=== PATIENT | male | born 1990 | race Caucasian/White ===

== ENCOUNTER 2023-05-03 13:23 | Emergency (ER) | payer BC, SELFPAY ==
[2023-05-03 13:48] VITALS: BP 126/75; PULSE 95; RESP 20; TEMP 37.2; O2SAT 97; BMI 35.9
[2023-05-03 16:07] VITALS: BP 140/98; PULSE 78; RESP 16; TEMP 36.7; O2SAT 98
[2023-05-03] MEDS: 0.9 % SODIUM CHLORIDE 1000 ml 1,000 ML IV ×2 (16:07→17:42)
--- NOTE | 2023-05-03 16:07 | CRLHL7_ITS ---
For Patients: As a result of the Century Cures Act, medical imaging exams and procedure reports are released immediately into your electronic medical record. You may view this report before your referring provider. If you have questions, please contact your health care provider. Indication: Wheezing Technique: Chest 2 views Comparison: None Findings/Impression: Cardiovascular and mediastinum: Heart size and vasculature are normal in caliber and appearance. Mediastinum is within normal limits. Lungs and pleural spaces: No pleural effusion or pneumothorax. Focal airspace consolidation within the left lower lobe suggestive of pneumonia. Bones and soft tissues: No significant findings. Dictated by Tod Garcia MD @ 05/03/2023 5:16:07 PM (Electronically Signed)
--- NOTE | 2023-05-03 16:08 | ED.GENADULT ---
HPI - General Adult General Date Seen: 05/03/23 Chief complaint: Weakness Stated complaint: Possible heat exhaustion--chills, headache Time Seen by Provider: 05/03/23 15:31 Source: patient and family Mode of arrival: ambulatory Limitations: no limitations History of Present Illness HPI narrative: Patient is a 32-year-old male who comes in with intermittent sweats and chills without fever over the past three or four days. 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 He has been doing this job for a couple of years. Over the past two days he has had some nausea but no vomiting. He has alternating sweats and chills. He has been drinking okay but is not able to eat. He has been physically weak and achy. He has also had headaches. No localizing neurologic complaints. He has taken some ibuprofen but no other medication. He feels that his urine has been dark and that he is urinating less than normal. Related Data Previous Rx's Medication Instructions Recorded azithromycin 250 mg tablet See Rx Instructions PO .COMPLEX #6 05/03/23 (Zithromax Z-Jayce) tabs Allergies Allergy/AdvReac Type Severity Reaction Status Date / Time No Known Drug Allergies Allergy Verified 05/03/23 14:05 Review of Systems Narrative: Review of systems is outlined above otherwise noted to be negative. PFSH PFS Social History Smoking Status: Never smoker How often do you have a drink containing alcohol: never AUDIT-C Alcohol total score: 0 Non-prescribed substance use: denies use Exam Narrative: Exam Narrative: Vitals noted. He is wake alert and fully oriented. His is lying in bed with him. He is in no acute distress. HEENT: Normocephalic, atraumatic. Conjunctiva clear. Extraocular movements are intact. Tympanic membranes are pearly white bilaterally. Posterior pharynx is clear without erythema or exudate. His mouth feels dry to him. Neck is supple without adenopathy, thyromegaly, carotid bruit. Full range of motion of the cervical spine. Lungs: Clear to auscultation in all yao. No wheezes, rales, rhonchi. There is some localized rhonchi in the right lower lobe. Some expiratory wheezes. Heart: Regular rate and rhythm without murmur. He is not tachycardic. Abdomen: Soft and nontender. No guarding, rigidity, rebound. Bowel sounds are normal. No palpable masses. Extremities: No cyanosis or edema. Good distal pulses. Skin: No abnormalities noted of the exposed skin. Neurologic: Awake, alert, fully oriented. Neurologic exam is nonfocal. Const: Vital Signs, click to edit/add: Vital Signs - 24 hr 05/03/23 13:48 05/03/23 16:07 Temperature 98.9 F 98.1 F Pulse Rate [Right Pulse Oximeter] 95 78 Respiratory Rate 20 16 Blood Pressure [Ri ght Upper Arm] 126/75 140/98 H Pulse Oximetry 97 98 Oxygen Delivery Me thod Room Air Room Air Course Course Hospital Course: Patient seen and examined. IV is established he is given 2 L of normal saline. Labs and chest x-ray are ordered. Vital Signs Vital signs: Initial Vital Signs Temperature 98.9 F 05/03/23 13:48 Temperature Source Temporal Artery Scan 05/03/23 13:48 Pulse Rate 95 05/03/23 13:48 Pulse Rhythm Regular 05/03/23 13:48 Pulse Strength 3+ Normal 05/03/23 13:48 Respiratory Rate 20 05/03/23 13:48 Blood Pressure 126/75 05/03/23 13:48 Blood Pressure Mean 92 05/03/23 13:48 Blood Pressure Position Sitting 05/03/23 13:48 Pulse Oximetry 97 05/03/23 13:48 Oxygen Delivery Method Room Air 05/03/23 13:48 Vital Signs Temperature 98.9 F 05/03/23 13:48 Pulse Rate 95 05/03/23 13:48 Respiratory Rate 20 05/03/23 13:48 Blood Pressure 126/75 05/03/23 13:48 Pulse Oximetry 97 05/03/23 13:48 Oxygen Delivery Method Room Air 05/03/23 13:48 Temperature 98.1 F 05/03/23 16:07 Pulse Rate 78 05/03/23 16:07 Respiratory Rate 16 05/03/23 16:07 Blood Pressure 140/98 H 05/03/23 16:07 Pulse Oximetry 98 05/03/23 16:07 Oxygen Delivery Method Room Air 05/03/23 16:07 Medical Decision Making Lab Data Labs: Lab Results 05/03/23 05/03/23 Range/Units 15:48 15:50 WBC 5.88 (4.50-11.00) K/uL RBC 4.61 (4.30-5.90) m/uL Hgb 14.0 (13.5-17.5) gm/dL Hct 41.8 (37.0-53.0) % MCV 91 (80-100) fL MCH 30 (26-34) pg MCHC 34 (32-36) gm/dL RDW Coeff of Kasandra 12.2 (11.5-15.5) % Plt Count 173 (140-440) K/uL Neut % (Auto) 77.7 H (42.0-72.0) % Lymph % (Auto) 12.8 L (20-44) % [place] % (Auto) 8.7 (0.0-11.0) % Eos % (Auto) 0.0 (0.0-7.0) % Baso % (Auto) 0.3 (0.0-3.0) % Neut # (Auto) 4.60 (1.7-7.0) K/uL Lymph # (Auto) 0.80 L (0.90-2.90) K/uL [place] # (Auto) 0.50 (0.00-0.90) K/UL Eos # (Auto) 0.00 (0.00-0.50) K/uL Baso # (Auto) 0.02 (0.00-0.30) K/uL Sodium 137 (135-149) mmol/L Potassium 4.3 (3.6-5.1) mmol/L Chloride 100 (96-114) mmol/L Carbon Dioxide 28 (20-32) mmol/L BUN 16 (5-24) mg/dL Creatinine 0.9 (0.5-1.5) mg/dL Estimated Creat Clear 123.92 Estimated GFR 118 ml/min Glucose 102 (60-115) mg/dL Calcium 9.8 (8.4-10.6) mg/dL Total Bilirubin 0.8 (0.1-1.5) mg/dL Direct Bilirubin 0.2 (0.0-0.5) mg/dL AST 35 (12-35) U/L ALT 34 (4-50) U/L Alkaline Phosphatase 59 (40-150) U/L Total Creatine Kinase 170 (54-186) U/L Total Protein 8.5 H (6.0-8.3) g/dL Albumin 4.7 (3.3-5.0) g/dL Urine Color Yellow (Yellow) Urine Appearance Clear (Clear) Urine pH 6.5 (5.0-8.5) Ur Specific [place] 1.025 (1.000-1.030) Urine Protein 1+ A (Negative) Urine Glucose (UA) Negative (Negative) Urine Ketones Trace A (Negative) Urine Blood Negative (Negative) Urine Nitrite Negative (Negative) Urine Bilirubin Negative (Negative) Urine Urobilinogen 1.0 (0.2-1.0) Ur Leukocyte Esterase Negative (Negative) Urine RBC 0-2 (0-2) Urine WBC 0-2 (0-5) Ur Squamous Epith Cells None (None-Few) Urine Bacteria None (None) Discharge Plan Discharge Clinical Impression: Heat exhaustion Left lower lobe pneumonia Qualifiers: Pneumonia type: due to unspecified organism Qualified Code(s): J18.9 - Pneumonia, unspecified organism Patient Disposition: Home, Self-Care Condition: Improved Additional Instructions: Your labs are all reassuring. Your chest x-ray shows a left lower lobe pneumonia. Zithromax x5 days. Rest, stay out of the heat until feeling better, Tylenol or ibuprofen for headache. Follow-up with your PCP to discuss a sleep apnea test. Follow-up with your PCP if symptoms are not significantly improved over the next three days. Prescriptions: New azithromycin [Zithromax Z-Jayce] 250 mg tablet See Rx Instructions .ROUTE .COMPLEX Qty: 6 0RF Rx Instructions: For 250 mg dose pack: take 500 mg today (day 1), then 250 mg for 4 days (days 2-5) Stand Alone Forms: [employer] Info Instructions
[2023-05-03 16:09] LABS: Appearance Urine Clear (Clear); Bilirubin Urine Negative (Negative); Blood Urine Negative (Negative); Color Urine Yellow (Yellow); Glucose Urine Negative (Negative); Ketones Urine Trace (Negative); Leukocyte Esterase Urine Negative (Negative); Nitrite Urine Negative (Negative); Protein Urine 1+ (Negative); Specific Gravity Urine 1.025 (1.000-1.030); pH Urine 6.5 (5.0-8.5)
[2023-05-03 16:20] LABS: Albumin* 4.7 g/dL (3.3-5.0); Chloride* 100 mmol/L (96-114); Potassium* 4.3 mmol/L (3.6-5.1); Sodium* 137 mmol/L (135-149)
[2023-05-03 16:22] LABS: Creatinine* 0.9 mg/dL (0.5-1.5); Est. Creatinine Clearance* 123.92; Estimated Glomerular Filt Rate 118 ml/min
[2023-05-03 16:23] LABS: Alanine Aminotransferase* 34 U/L (4-50); Alkaline Phosphatase* 59 U/L (40-150); Aspartate Amino Transferase* 35 U/L (12-35); Bilirubin Direct* 0.2 mg/dL (0.0-0.5); Bilirubin Total* 0.8 mg/dL (0.1-1.5); Blood Urea Nitrogen* 16 mg/dL (5-24); Calcium* 9.8 mg/dL (8.4-10.6); Carbon Dioxide* 28 mmol/L (20-32); Creatine Kinase* 170 U/L (54-186); Glucose* 102 mg/dL (60-115); Total Protein* 8.5 g/dL (6.0-8.3)
[2023-05-03 16:25] LABS: RBC Urine 0-2 (0-2); WBC Urine 0-2 (0-5)
[2023-05-03 17:33] LABS: Basophils Absolute Auto 0.02 K/uL (0.00-0.30); Basophils Percent Auto 0.3 % (0.0-3.0); Hematocrit 41.8 % (37.0-53.0); Immature Granulocytes Abs Auto 0.03 K/uL (0.00-0.30); Immature Granulocytes Pct Auto 0.5 %; Lymphocytes Percent Auto 12.8 % (20-44); Mean Corpuscular HGB Conc 34 gm/dL (32-36); Mean Corpuscular Hemoglobin 30 pg (26-34); Mean Corpuscular Volume 91 fL (80-100); Monocytes Percent Auto 8.7 % (0.0-11.0); Neutrophils Percent Auto 77.7 % (42.0-72.0); Platelet Count* 173 K/uL (140-440); RDW Coefficient of Variation % 12.2 % (11.5-15.5); Red Blood Count 4.61 m/uL (4.30-5.90); White Blood Count* 5.88 K/uL (4.50-11.00)
[2023-05-03 17:34] LABS: Slide Review Reflex No
[2023-05-03] MEDS: cefTRIAXone 1 GM in 0.9 % SODIUM CHLORIDE Mini-bag 100 ML IVPB (17:43)
--- NOTE | 2023-05-04 15:32 | ED.NURSE ---
Pt's called, stating his fever is at 104 after taking tylenol and Aleve. Has been sleeping all day, diarrhea, feels out of it, thinks his breathing is faster. Spoke with Dr Arango. Unable to give medical advise over the phone, advised that they are always welcome to come in to be reevaluated or call PCP abigail. Stated that he does not have a pcp. will discuss with pt.
== END 2023-05-03 19:12 | disposition home or self-care (01) ==
PROVIDERS: Emergency Provider Family Medicine
DX: T67.5XXA Heat exhaustion, unspecified, initial encounter (principal)
CPT/HCPCS: 36415; 71046; 80048; 80076; 81003; 81015; 82550; 85025; 96365; 99283; 99284; J0696; J7030

== ENCOUNTER 2023-05-04 15:59 | Emergency (ER) | payer BC, SELFPAY ==
[2023-05-04 16:08] VITALS: BP 144/66; RESP 24; TEMP 38.4; O2SAT 97; BMI 35.9
[2023-05-04 16:59] VITALS: PULSE 100; O2SAT 95
[2023-05-04 17:00] VITALS: PULSE 87; O2SAT 97
[2023-05-04 17:01] VITALS: BP 128/59; PULSE 91; O2SAT 96
--- NOTE | 2023-05-04 17:23 | ED_ITS ---
HPI - General Adult General Time Seen by Provider: 17:23 Date Seen: 05/04/23 Chief complaint: Fever Stated complaint: Pneumonia Fever Time Seen by Provider: 05/04/23 17:15 Source: patient, RN notes reviewed and old records reviewed Mode of arrival: ambulatory Limitations: no limitations History of Present Illness HPI narrative: Patient is a 32-year-old male coming back in the ER feeling worse, diagnosed with pneumonia yesterday. He has developed higher fevers, increased headache, brain fog, coughing, weak. Ongoing nausea inability to take anything in. He was diagnosed with a left lower lobe pneumonia on chest x-ray yesterday. He had had about 3-4 days of fevers chills, 2 days of nausea and diminished appetite as well as headache. His right lower lobe sounded abnormal on auscultation. He was given a dose IV Rocephin yesterday, started a Z-Jayce today. He has noticed a rash on his chest and back starting today. It is not itching. He feels like his head and neck are on fire. He took some Tylenol this morning, some Aleve about early afternoon today. Related Data Previous Rx's Medication Instructions Recorded azithromycin 250 mg tablet See Rx Instructions PO .COMPLEX #6 05/03/23 (Zithromax Z-Jayce) tabs cefdinir 300 mg capsule 300 mg PO BID #14 caps 05/04/23 Allergies Allergy/AdvReac Type Severity Reaction Status Date / Time No Known Drug Allergies Allergy Verified 05/04/23 18:11 Review of Systems Status of ROS: Reports: 6 or more systems reviewed and unremarkable except as noted in History and below PFSH PFS Social History Smoking Status: Never smoker How often do you have a drink containing alcohol: never AUDIT-C Alcohol total score: 0 Non-prescribed substance use: denies use Exam Const: Vital Signs, click to edit/add: Vital Signs - 24 hr 05/04/23 16:08 05/04/23 16:59 05/04/23 17:00 Temperature 101.2 F H Pulse Rate 100 87 Respiratory Rate 24 Blood Pressure Blood Pressure [Ri ght Upper Arm] 144/66 H Pulse Oximetry 97 95 97 Oxygen Delivery Me thod Room Air 05/04/23 17:01 Temperature Pulse Rate 91 Respiratory Rate Blood Pressure 128/59 L Blood Pressure [Ri ght Upper Arm] Pulse Oximetry 96 Oxygen Delivery Me thod Documenting provider has reviewed patient's vital signs: yes Common normals: no apparent distress, average body habitus, oriented x3, no limitations and alert General appearance: cooperative and ill appearing HENMT: Common normals: normocephalic, head/scalp atraumatic, hearing grossly normal bilaterally, external ears normal, EAC's normal, TM's normal bilaterally, external nose normal, nasal mucous membranes and turbinates normal, moist oral mucous membranes, oropharynx normal, dentition normal and gingiva normal Head and scalp: normocephalic and atraumatic Nose: external nose normal and nasal mucous membranes and turbinates normal External ear: external ears normal External auditory canal: EAC's normal Tympanic membrane: TM's normal bilaterally Eye: Common normals: PERRL, EOMs intact bilaterally, conjunctivae normal and no scleral icterus Conjunctiva: conjunctiva(e) normal Pupil: PERRL Neck & C-Spine: Common normals: full ROM, no lymphadenopathy, supple, no meningeal signs, no JVD and thyroid normal Thyroid: thyroid normal Lymph: Lymphatic: no lymphadenopathy noted Resp: Common normals: normal respiratory effort, no retractions and no use of accessory muscles Other: He interestingly had almost rhonchi and some very faint and expiratory wheezing anteriorly over his right chest wall but is clear elsewhere throughout lung yao. Cardio: Common normals: no JVD, regular rate, regular rhythm, S1 normal heart sound, S2 normal heart sound, no gallops, no clicks, no murmurs and no rub Rate: regular rate Rhythm: regular rhythm Heart sounds: S1 normal and S2 normal GI: Common normals: Normal to inspection, nondistended, normoactive bowel sounds present, soft to palpation, non-tender, no hepatosplenomegaly and no masses Palpation: soft and no hepatosplenomegaly Neuro: Common normals: oriented x3 Sensorium/orientation: alert Meningeal signs: no meningeal signs Skin: Narrative: Has fine macular rash that is erythematous and blanchable, not petechial. It fans out over his back and chest. Course Course Hospital Course: We are going to proceed with chest CT PE protocol, rule out COVID another viruses. We will obtain full complement of labs including blood cultures. Initiate IV fluids with a L of normal saline and 15 mg IV Toradol he may have incompletely treated pneumonia that is worsening, might obviously need to consider other concomitantly etiologies like a concomitant PE or underlying COVID with this. Will have a monitored on pulse oximetry and proceed with workup including blood cultures. Reevaluation(s) Time of Reevaluation #1: 20:15 Reevaluation #1: Did review with patient has multifocal pneumonia, he and his significant other did express interest for admission. Did subsequently talk to the hospitalist, reviewed the case. He is stating he is not meeting criteria at this time. Will give him a dose of Rocephin, continue the Z-Jayce. He really has not had adequate outpatient treatment. Would add in a cephalosporin to the Z-Jayce. He will not need oral cephalosporin until tomorrow. The Rocephin we are giving tonight should cover him. His rash is think is related to the infection, does not seem allergic to me. We went over signs and symptoms to watch for that might suggest that the rash is indeed allergic. He is really complaining about his headache. I have reviewed with him that he has no criteria a really for meningitis or encephalitis at this point. I do understand he feels terrible but headaches are a common finding with infections. He states the Toradol I gave him really did not help much, Tylenol and ibuprofen are not helping. I will send him home with a small prescription of oxycodone to help with his headache in tell he is improving from his pneumonia with the antibiotic use. He wanted to know about not eating. I reviewed with him that we really do not worry acutely about lack of oral food intake. We do worry if patient's cannot take fluids in which she is able to do. I a have reviewed with him that his appetite for solids will improve as he feels better. Vital Signs Vital signs: Initial Vital Signs Temperature 101.2 F H 05/04/23 16:08 Temperature Source Oral 05/04/23 16:08 Respiratory Rate 24 05/04/23 16:08 Blood Pressure 144/66 H 05/04/23 16:08 Blood Pressure Mean 92 05/04/23 16:08 Pulse Oximetry 97 05/04/23 16:08 Oxygen Delivery Method Room Air 05/04/23 16:08 Vital Signs Temperature 101.2 F H 05/04/23 16:08 Respiratory Rate 24 05/04/23 16:08 Blood Pressure 144/66 H 05/04/23 16:08 Pulse Oximetry 97 05/04/23 16:08 Oxygen Delivery Method Room Air 05/04/23 16:08 Temperature 101.2 F H 05/04/23 16:08 Pulse Rate 91 05/04/23 17:01 Respiratory Rate 24 05/04/23 16:08 Blood Pressure 128/59 L 05/04/23 17:01 Pulse Oximetry 96 05/04/23 17:01 Oxygen Delivery Method Room Air 05/04/23 16:08 Medical Decision Making Lab Data Lab results reviewed: Yes I reviewed the patient's lab results Labs: Lab Results 05/04/23 05/04/23 05/04/23 Range/Units 17:33 17:34 17:45 WBC 5.18 (4.50-11.00) K/uL RBC 4.50 (4.30-5.90) m/uL Hgb 13.4 L (13.5-17.5) gm/dL Hct 40.3 (37.0-53.0) % MCV 90 (80-100) fL MCH 30 (26-34) pg MCHC 33 (32-36) gm/dL RDW Coeff of [place] 12.1 (11.5-15.5) % Plt Count 150 (140-440) K/uL Neut % (Auto) 82.4 H (42.0-72.0) % Lymph % (Auto) 9.7 L (20-44) % [place] % (Auto) 6.9 (0.0-11.0) % Eos % (Auto) 0.0 (0.0-7.0) % Baso % (Auto) 0.4 (0.0-3.0) % Neut # (Auto) 4.30 (1.7-7.0) K/uL Lymph # (Auto) 0.50 L (0.90-2.90) K/uL [place] # (Auto) 0.40 (0.00-0.90) K/UL Eos # (Auto) 0.00 (0.00-0.50) K/uL Baso # (Auto) 0.02 (0.00-0.30) K/uL D-Dimer Quant (PE/DVT) 0.87 H (0.00-0.50) ug/ml VBG pH 7.398 (7.32-7.43) VBG pCO2 46 (40-50) mmHG VBG pO2 22.0 L (25-47) mmHG VBG HCO3 29 H (21-28) mmol/L Sodium 135 (135-149) mmol/L Potassium 4.1 (3.6-5.1) mmol/L Chloride 98 (96-114) mmol/L Carbon Dioxide 27 (20-32) mmol/L BUN 9 (5-24) mg/dL Creatinine 0.8 (0.5-1.5) mg/dL Estimated Creat Clear 139.41 Estimated GFR 122 ml/min Glucose 104 (60-115) mg/dL Lactate 1.2 (0.5-1.9) mmol/L Calcium 9.1 (8.4-10.6) mg/dL Total Bilirubin 0.9 (0.1-1.5) mg/dL AST 35 (12-35) U/L ALT 30 (4-50) U/L Alkaline Phosphatase 49 (40-150) U/L C-Reactive Protein 16.3 H (0.5-1.0) mg/dL NT-Pro-B Natriuret Pep 265 pg/mL Total Protein 7.7 (6.0-8.3) g/dL Albumin 4.2 (3.3-5.0) g/dL SARS-CoV-2 (PCR) Negative SARS-CoV-2 (Negative) Influenza Type A (PCR) Negative PCR FLU A (Negative) Influenza Type B (PCR) Negative PCR FLU B (Negative) RSV (PCR) Negative PCR RSV (Negative) POC Troponin I 0.00 L (0.01-0.04) ng/ml Imaging Data CT scan - chest: Attestation: I have reviewed the pertinent imaging results. Radiologist's impression: Patient: DOMINIC DEL ROSARIO Facility:?[facility] Patient ID:?[id number] Site Patient ID:?[id number]. Site :?[id number] Study:?CT Chest Angio PE 95CC ISOVUE 370-05/04/2023 6:10:30 PM Ordering Physician:?Gabriela Aguiar Final Report: INDICATION: Recent pneumonia. Worsening SOB. Fever. Rule out pulmonary embolism. TECHNIQUE: Volumetric helical scanning of the thorax was performed during infusion of 95 cc of Isovue 370 contrast material IV, timing optimized for pulmonary arterial opacification. Coronal and sagittal reconstructions were obtained. COMPARISON: None. FINDINGS: The pulmonary arteries are less than optimally opacified. No central pulmonary arterial filling defect is identified. However, small peripheral emboli could go undetected. The heart size is normal. Pneumonias are demonstrated in the posterior lower lobe bases, the inferolateral lingula as well as the anteromedial right upper lobe. Mild bronchial wall thickening is noted in the regions of pneumonia. No pleural effusion is evident. Mild lymphadenopathy is demonstrated in both jean. Mildly enlarged mediastinal lymph nodes are noted in the aortopulmonary window as well as the subcarinal region. Images of the upper abdomen demonstrate mild splenomegaly. IMPRESSION: 1. Suboptimal pulmonary arterial opacification. No central pulmonary embolus is identified. However, small peripheral emboli could go undetected. 2. Pneumonia is in both posterior lower lobe bases, the inferolateral lingula as well as in the anteromedial right upper lobe. Associated mild bronchial wall thickening noted. 3. Mild mediastinal and bilateral hilar lymphadenopathy. 4. Mild splenomegaly. Please note that all CT scans at this facility use dose modulation, iterative reconstruction, and/or weight-based dosing when appropriate to reduce radiation dose to as low as reasonably achievable. Dictated by Sherman Osorio MD @ 05/04/2023 6:46:59 PM (Electronic Signature) Critical Care Time Critical Care Time Critical Care Time: No Discharge Plan Discharge Clinical Impression: Multifocal pneumonia Patient Disposition: Home, Self-Care Condition: Stable Instructions: Community Acquired Pneumonia (ED) Additional Instructions: Continue Z-Jayce as prescribed. Start cefdinir tomorrow, try to get 2 doses in tomorrow and take as prescribed. Continue with Tylenol and ibuprofen per bottle directions for fever and pain control. Have given a few tablets of oxycodone to help with your headache until the antibiotics are becoming effective in treating your underlying infection. Need to follow up in clinic next week for recheck. Return to the ER if you have significant worsening or are experiencing new/concerning symptoms. Activity Level: Activity as Tolerated Prescriptions: New cefdinir 300 mg capsule 300 mg PO BID Qty: 14 0RF No Action azithromycin [Zithromax Z-Jayce] 250 mg tablet See Rx Instructions .ROUTE .COMPLEX Qty: 6 0RF Rx Instructions: For 250 mg dose pack: take 500 mg today (day 1), then 250 mg for 4 days (days 2-5) Follow Up/Referrals: Provider,Not a Local [Primary Care Provider] - Stand Alone Forms: [facility] Info Instructions
--- NOTE | 2023-05-04 17:33 | CRLHL7_ITS ---
For Patients: As a result of the Century Cures Act, medical imaging exams and procedure reports are released immediately into your electronic medical record. You may view this report before your referring provider. If you have questions, please contact your health care provider. INDICATION: Recent pneumonia. Worsening SOB. Fever. Rule out pulmonary embolism. TECHNIQUE: Volumetric helical scanning of the thorax was performed during infusion of 95 cc of Isovue 370 contrast material IV, timing optimized for pulmonary arterial opacification. Coronal and sagittal reconstructions were obtained. COMPARISON: None. FINDINGS: The pulmonary arteries are less than optimally opacified. No central pulmonary arterial filling defect is identified. However, small peripheral emboli could go undetected. The heart size is normal. Pneumonias are demonstrated in the posterior lower lobe bases, the inferolateral lingula as well as the anteromedial right upper lobe. Mild bronchial wall thickening is noted in the regions of pneumonia. No pleural effusion is evident. Mild lymphadenopathy is demonstrated in both jean. Mildly enlarged mediastinal lymph nodes are noted in the aortopulmonary window as well as the subcarinal region. Images of the upper abdomen demonstrate mild splenomegaly. IMPRESSION: 1. Suboptimal pulmonary arterial opacification. No central pulmonary embolus is identified. However, small peripheral emboli could go undetected. 2. Pneumonia is in both posterior lower lobe bases, the inferolateral lingula as well as in the anteromedial right upper lobe. Associated mild bronchial wall thickening noted. 3. Mild mediastinal and bilateral hilar lymphadenopathy. 4. Mild splenomegaly. Please note that all CT scans at this facility use dose modulation, iterative reconstruction, and/or weight-based dosing when appropriate to reduce radiation dose to as low as reasonably achievable. Dictated by Sherman Osorio MD @ 05/04/2023 6:46:59 PM (Electronically Signed)
[2023-05-04] MEDS: KETOROLAC 15 MG/ML inj IVP (17:45)
[2023-05-04] MEDS: 0.9 % SODIUM CHLORIDE 1000 ml 1,000 ML IV (18:00)
[2023-05-04 18:16] LABS: HCO3 VBG 29 mmol/L (21-28); PCO2 VBG 46 mmHG (40-50); pH VBG 7.398 (7.32-7.43)
[2023-05-04 18:23] LABS: Basophils Absolute Auto 0.02 K/uL (0.00-0.30); Basophils Percent Auto 0.4 % (0.0-3.0); Hematocrit 40.3 % (37.0-53.0); Hemoglobin* 13.4 gm/dL (13.5-17.5); Immature Granulocytes Abs Auto 0.03 K/uL (0.00-0.30); Immature Granulocytes Pct Auto 0.6 %; Lymphocytes Percent Auto 9.7 % (20-44); Mean Corpuscular HGB Conc 33 gm/dL (32-36); Mean Corpuscular Hemoglobin 30 pg (26-34); Mean Corpuscular Volume 90 fL (80-100); Monocytes Percent Auto 6.9 % (0.0-11.0); Neutrophils Percent Auto 82.4 % (42.0-72.0); Platelet Count* 150 K/uL (140-440); RDW Coefficient of Variation % 12.1 % (11.5-15.5); White Blood Count* 5.18 K/uL (4.50-11.00)
[2023-05-04 18:24] LABS: Lactate* 1.2 mmol/L (0.5-1.9)
[2023-05-04 18:26] LABS: Slide Review Reflex No
[2023-05-04 19:02] LABS: Chloride* 98 mmol/L (96-114)
[2023-05-04 19:03] LABS: Albumin* 4.2 g/dL (3.3-5.0); Potassium* 4.1 mmol/L (3.6-5.1); Sodium* 135 mmol/L (135-149)
[2023-05-04 19:05] LABS: Creatinine* 0.8 mg/dL (0.5-1.5); Est. Creatinine Clearance* 139.41; Estimated Glomerular Filt Rate 122 ml/min
[2023-05-04 19:06] LABS: Alanine Aminotransferase* 30 U/L (4-50); Alkaline Phosphatase* 49 U/L (40-150); Aspartate Amino Transferase* 35 U/L (12-35); Bilirubin Total* 0.9 mg/dL (0.1-1.5); Blood Urea Nitrogen* 9 mg/dL (5-24); Carbon Dioxide* 27 mmol/L (20-32); D Dimer Quantitative* 0.87 ug/ml (0.00-0.50); Glucose* 104 mg/dL (60-115); Total Protein* 7.7 g/dL (6.0-8.3)
[2023-05-04 19:07] LABS: Calcium* 9.1 mg/dL (8.4-10.6)
[2023-05-04 19:09] LABS: PCR FLU A Negative PCR FLU A (Negative); PCR FLU B Negative PCR FLU B (Negative); PCR RSV Negative PCR RSV (Negative)
[2023-05-04 19:19] LABS: NT Pro B Type NatriureticPept* 265 pg/mL
[2023-05-04 19:22] LABS: SARS PCR* Negative SARS-CoV-2 (Negative)
[2023-05-04 20:04] LABS: C Reactive Protein* 16.3 mg/dL (0.5-1.0)
[2023-05-04] MEDS: cefTRIAXone 1 GM in 0.9 % SODIUM CHLORIDE Mini-bag 100 ML IVPB (20:23)
[2023-05-04] MEDS: OXYCODONE 5 MG TABLET PO (20:29)
== END 2023-05-04 21:10 | disposition home or self-care (01) ==
PROVIDERS: Emergency Provider Family Medicine
DX: J18.9 Pneumonia, unspecified organism (principal)
CPT/HCPCS: 36415; 71260; 80053; 82803; 83605; 83880; 84484; 85025; 85379; 86140; 87040; 87631; 94761; 96365; 96375; 99284; A9270; J0696; J1885; J7030; Q9967

== ENCOUNTER 2024-03-02 08:33 | Emergency (ER) | payer BC, SELFPAY ==
[2024-03-02] VITALS (12 sets, daily range): BP systolic 114–129; BP diastolic 69–72; PULSE 52–72; RESP 16–20; TEMP 36.1; O2SAT 92–98; BMI 36.9
--- OUTSIDE RECORDS SUMMARY | 2024-03-02 08:35 | XMS_ITS | Clinical Summary ---
Author Name Unknown Organization [facility] Address [place], [place] [address] Care Team Providers Care Branch Manager Name Role Phone Pcp, No Primary Care Provider Unavailabl e Allergies No known active allergies Medications Medication Sig Dispensed Refills Start Date End Date Status albuterol HFA (ProAir HFA) 90 mcg/actuation inhalerIndications:Co ugh, unspecified type Inhale 1-2 Puffs by mouth every 6 hours if needed for Shortness of Breath 1st choice. 1 Each 11/13/2022 Active Active Problems Problem Noted Date Diagnosed Date IBS (irritable bowel syndrome) 07/08/2010 Resolved Problems Problem Noted Date Diagnosed Date Resolved Date Disease caused by Bordetella pertussis 12/24/2009 12/12/2023 Encounters Date Type Department Care Team Description 12/12/2023 10:15 AM OCULAR PATHOLOGIST Ancillary Procedure [facility] [address] [place] [address] 12/12/2023 9:10 AM OCULAR PATHOLOGIST Office Visit [facility] [address] [place] [address] Citlaly Garrett MD Leg Pain/problem (left leg); Ankle Pain/problem (x1day, left ankle, swelling) 12/12/2023 Travel from Last 3 Months Immunizations Name Administration Dates Next Due DTP 02/17/1993,1992 DTP-HIB 01/27/1994,05/06/1993 DTaP 12/03/1996 Hepatitis B (Peds) 06/02/1997,01/14/1997, 997 Hib Conjugate, Unspecified 02/17/1993,1992 Influenza Virus, Unspecified 01/04/2007 Influenza, IIV3 (Age >=3 years) 01/03/2007 MMR 03/14/2004,01/27/1994 Oral Polio Vaccine 12/03/1996,01/27/1994, 993,1992 Td (Age >=7 Years) 03/14/2004 Tdap 02/18/2013 Family History Medical History Relation Name Comments Good Health Father Good Health Mother Good Health Sister Relation Name Status Comments Father Alive Mother Alive Sister Social History Tobacco Use Types Packs/Day Years Used Date Smoking Tobacco: Never Cigarettes Smokeless Tobacco: Never Tobacco Cessation:Counseling Given: Yes Comments:mom smokes in garage Alcohol Use Standard Drinks/Week Comments Yes 5 (1 standard drink = 0.6 oz pur e alcohol) PHQ-2 Answer Date Recorded PHQ-2 TOTAL SCORE 0 12/12/2023 Social Connections Answer Date Recorded Frequency of Communication with Friends and Fami ly 0 12/12/2023 Financial Resource Strain Answer Date R ecorded Difficulty of Paying Living Expenses 3 12/12/2023 Difficulty of Paying Living Expenses Not on file 12/12/2023 Food Insecurity Answer Date Recorded Worried About Running Out of Food in the Last Ye ar 1 12/12/2023 Transportation Needs Answer Date Record ed Lack of Transportation (Medical) 1 12/12/2023 Housing Stability Answer Date Recorded Unable to Pay for Housing in the Last Year 1 12/12/2023 Sex and Gender Information Value Date Recorded Sex Assigned at Not on file Gender Identity Not on file Sexual Orientation Not on file Obstetrics History Last Filed Vital Signs Vital Sign Reading Time Taken Comments Blood Pressure 124/76 12/12/2023 9:22 AM OCULAR PATHOLOGIST Pulse 55 12/12/2023 9:17 AM OCULAR PATHOLOGIST Temperature 37.2 ??C (99 ??F) 11/13/2022 9:50 AM OCULAR PATHOLOGIST Respiratory Rate 20 11/23/2017 3:57 PM OCULAR PATHOLOGIST Oxygen Saturation 100% 12/12/2023 9:17 AM OCULAR PATHOLOGIST Inhaled Oxygen Concentration - - Weight 119.2 kg (262 lb 12.8 oz) 12/12/2023 9:17 AM OCULAR PATHOLOGIST Height 175.3 cm (5' 9.02) 12/26/2021 1 1:07 AM OCULAR PATHOLOGIST Body Mass Index 38.79 12/26/2021 11:07 AM OCULAR PATHOLOGIST Plan of Treatment Health Maintenance Due Date Last Done Comments BMI (ht and wt on same day) for age 18+ 12/26/2022 12/26/2021, 09/08/2021, 05/10/2018, Additional history exists Tetanus booster 02/18/2023 02/18/2013, 03/14/2004 COVID-19 vaccine series ( season) 2023 Influenza for age 9-49 07/13/2024 01/04/2007, 2006 Depression screening for age 12+ 12/12/2024 12/12/2023, 12/12/2023, 09/08/2021, Additional history exists HIV for age 15-65 Completed 09/17/2012, , 09/13/2010 Hepatitis C screening for age 18-79 Completed 09/17/2012, 01/23/2012, 09/13/2010 Tdap Completed 02/18/2013 Pneumococcal series for age 6-64 Aged Out No longer eligible based on patient's age to complete this topic Procedures Procedure Name Priority Date/Time Associated Diagnosis Comments XR ANKLE 3 VIEWS LEFT Routine 12/12/2023 10:13 AM OCULAR PATHOLOGIST Left ankle swelling ANTI HIV 1/2 Routine 09/17/2012 9:41 AM OCULAR PATHOLOGIST Screen for STD (sexually transmitted disease) ANTI HCV Routine 09/17/2012 9:41 AM OCULAR PATHOLOGIST Screen for STD (sexually transmitted disease) from Last 3 Months or Most Recently Relevant to Health Maintenance Results * XR ANKLE 3 VIEWS LEFT (12/12/2023 10:13 AM OCULAR PATHOLOGIST) Anatomical Region Laterality Modality ANKLES, ANKLE L Computed Radiogr aphy 12/12/2023 12:0 1 PM OCULAR PATHOLOGIST Narrative 12/12/2023 12:01 PM OCULAR PATHOLOGIST For Patients: ??As a result of the 21st Century Cures Act, medical imaging exams and procedure reports are released immediately into your electronic medical record. ??You may view this report before your referring provider. ??If you have questions, please contact your health care provider. Indication: Left ankle swelling Technique: Left ankle 3 views Comparison: 05/10/2018 Findings: Hardware within the distal tibia again noted. Intact mortise. Chronic changes at the subtalar joint. Stable dorsal talar beaking. No acute fracture. Impression: Stable exam. Chronic subtalar coalition. Dictated by Lei Augustine MD @ 12/12/2023 12:01:25 PM (Electronically Signed) Procedure Note Lei Augustine MD - 12/12/2023 For Patients: As a result of the Cures Act, medical imagingexams and procedure reports are released immediately into your electronicmedical record. You may view this report before your referring provider.If you have questions, please contact your health care provider. Indication: Left ankle swelling Technique: Left ankle 3 views Comparison: 05/10/2018 Findings: Hardware within the distal tibia again noted. Intact mortise. Chronicchanges at the subtalar joint. Stable dorsal talar beaking. No acutefracture. Impression: Stable exam. Chronic subtalar coalition. Dictated by Lei Augustine MD @ 12/12/2023 12:01:25 PM (Electronically Signed) Citlaly Garrett MD GENERAL IMAGING * ANTI HCV (09/17/2012 9:41 AM OCULAR PATHOLOGIST) ANTI HCV Non-reacti ve [facility] Blood specimen (specimen) BLOOD SPECIMEN / Unknown 09/17/2012 9:41 AM OCULAR PATHOLOGIST 09/17/2012 9:36 AM OCULAR PATHOLOGIST Lei Hill MD SEND OUTS [facility] [address]NAL ZIP [address] [address] [place] [address] * ANTI HIV 1/2 (09/17/2012 9:41 AM OCULAR PATHOLOGIST) ANTI HIV 1/2 Non-reacti ve [facility] Blood specimen (specimen) BLOOD SPECIMEN / Unknown 09/17/2012 9:41 AM OCULAR PATHOLOGIST 09/17/2012 9:36 AM OCULAR PATHOLOGIST Lei Hill MD SEND OUTS [facility] INTERNAL ZIP [address] [address] from Last 3 Months or Most Recently Relevant to Health Maintenance Care Teams Branch Manager Relationship Specialty Start Date End Date Pcp, No . PCP - General 01/22/12
--- OUTSIDE RECORDS SUMMARY | 2024-03-02 08:35 | XMS_ITS | Referral Summary ---
Author Name Unknown Organization [facility] Address [address] [place] [address] Phone Care Team Providers Care Bundle Tier Name Role Phone Unavailable Primary Care Provider Unavailabl e Source Comments [email or web address] is fully rolled out on [email or web address]. Last update 04/16/09.[employer] Allergies No known active allergies Medications * Be aware that medications may not be up to date as of this document. Always verify current medications with patient. Medication Sig Dispensed Refills Start Date End Date Status albuterol (VENTOLIN HFA;PROVENTIL HFA;PROAIR) 108 (90 BASE) mcg/act inhalation inhaler Inhale 1-2 puffs by mouth once every 4 hours as needed for shortness of breath, wheezing. 18 g 5 05/09/2023 Active guaiFENesin (ROBITUSSIN) 200 mg/10mL oral Take 10 mL (200 mg) by mouth every 4 hours as needed for cough. 118 mL 05/09/2023 Active acetaminophen 325 mg oral tablet Take 2 tablets (650 mg) by mouth every 4 hours while awake. 60 tablet 05/09/2023 Active hydrOXYzine (ATARAX;VISTARIL) 25 mg oral tabletIndications:An xiety,insomnia Take 1 tablet (25 mg) by mouth every 6 hours as needed for Anxiety. Indications: Feeling Anxious, insomnia 30 tablet 1 11/08/2023 Active Active Problems Problem Noted Date Diagnosed Date ANABELLA (obstructive sleep apnea) 07/18/2023 Hypoxia 05/06/2023 Pneumonia of both lungs due to infectious organism, unspecified part of lung 05/06/2023 Sepsis without acute organ d ysfunction, due to unspecified organism ([facility]) 05/06/2023 Social History Tobacco Use Types Packs/Day Years Used Date Smoking Tobacco: Never Smokeless Tobacco: Never Tobacco Cessation:Counseling Given: Not Answered Comments:Smoked marijuana 5x in his life prior Alcohol Use Standard Drinks/Week Comments Yes 0 (1 standard drink = 0.6 oz pure alcohol) 1-2x/week handful of beers 4-5. Exercise Vital Sign Answer Date Recorde d On average, how many days pe r week do you engage in moderate to strenuous exercise (like a brisk walk)? 5 days 05/23/2023 On average, how many minutes do you engage in exercise at this level? 150+ min 05/23/2023 Sex and Gender Information Value Date Recorded Sex Assigned at Male 05/23/2023 8:32 AM CDT Gender Identity Male 05/23/2023 8:32 AM CDT Sexual Orientation Straight 05/23/2023 8: 32 AM CDT Last Filed Vital Signs Vital Sign Reading Time Taken Comments Blood Pressure 132/67 11/08/2023 8:07 AM ASSISTANT SUPERINTENDENT FOR CURRICULUM Pulse 61 11/08/2023 8:07 AM ASSISTANT SUPERINTENDENT FOR CURRICULUM Temperature 37.1 ??C (98.7 ??F) 05/23/2023 8:07 AM CD T Respiratory Rate 20 05/09/2023 8:00 AM CDT Oxygen Saturation 99% 05/23/2023 8:07 AM CDT Inhaled Oxygen Concentration - - Weight 120.2 kg (265 lb) 11/08/2023 8:07 AM ASSISTANT SUPERINTENDENT FOR CURRICULUM Height 177.8 cm (5' 10) 11/08/2023 8:07 AM ASSISTANT SUPERINTENDENT FOR CURRICULUM Body Mass Index 38.02 11/08/2023 8:07 AM ASSISTANT SUPERINTENDENT FOR CURRICULUM Plan of Treatment Not on file Procedures Procedure Name Priority Date/Time Associated Diagnosis Comments PC HIV-1 AG W/HIV-1 & HIV-2 AB Routine 05/06/2023 2:20 PM CDT from Last 3 Months or Most Recently Relevant to Health Maintenance Results * HIV COMBO (05/06/2023 2:20 PM CDT) HIV Antigen-Antibody Nonreactive Nonreactive [facility] Comment:Performance characte ristics have not been established with this test on patients less than 2 years of age. Blood 05/06/2023 2:20 PM CDT 05/06/2023 7:33 PM CDT Alberto Sepulveda MD LABORATORY [facility] [address] [place] [id number] from Last 3 Months or Most Recently Relevant to Health Maintenance Advance Directives For more information, please contact: [phone] * Full Code (Latest Code Status on File) Date Activated Date Inactivated Comments 05/08/2023 1:23 AM 05/09/2023 3:44 PM Question Answer Comments Does the Patient have prefer ences regarding life sustaining measures (these options only apply when the patient has a pulse): No Discussed Code Status With Whom? Not discussed
--- OUTSIDE RECORDS SUMMARY | 2024-03-02 08:35 | XMS_ITS | Clinical Summary ---
Author Name Unknown Organization [facility] Address [address] [place] [address] Phone Care Team Providers Care Speech Communication Instructor Name Role Phone Unavailable Primary Care Provider Unavailabl e Source Comments Faves is fully rolled out on [employer]. Last update 04/16/09.[employer] Allergies No known active allergies Medications * [...] organ d ysfunction, due to unspecified organism ([facility]) 05/06/2023 Family History Medical History Relation Name Comments HTN Father skin cancer Father Cancer Colon Maternal Grandfather Cancer Breast Maternal Grandmother Cancer Lung Maternal Grandmother SKIN CANCER Maternal Grandmother Relation Name Status Comments Father Maternal Grandfather Maternal Grandmother Social History Tobacco Use Types Packs/Day Years [...] Comments Blood Pressure 132/67 11/08/2023 8:07 AM TEXTILE MACHINERY SALES REPRESENTATIVE Pulse 61 11/08/2023 8:07 AM TEXTILE MACHINERY SALES REPRESENTATIVE Temperature 37.1 ??C (98.7 ??F) 05/23/2023 8:07 AM CD T Respiratory Rate 20 05/09/2023 8:00 AM CDT Oxygen Saturation 99% 05/23/2023 8:07 AM CDT Inhaled Oxygen Concentration - - Weight 120.2 kg (265 lb) 11/08/2023 8:07 AM TEXTILE MACHINERY SALES REPRESENTATIVE Height 177.8 cm (5' 10) 11/08/2023 8:07 AM TEXTILE MACHINERY SALES REPRESENTATIVE Body Mass Index 38.02 11/08/2023 8:07 AM TEXTILE MACHINERY SALES REPRESENTATIVE Plan of Treatment Health Maintenance Due Date Last Done Comments Dental Oral Exam 1992 Dental Prophylaxis 1992 Dental X-Ray: Bitewings 1992 COVID-19 Vaccine (#1) 1997 Pneumococcal Vaccine: Pediatrics (0 to 5 Years) and At-Risk Patients (6 to 64 Years) (1 of 2 - PCV) 1998 Periodontal Maintenance 2006 PREVENTATIVE VISIT 2010 HEALTH MAINTENANCE PROTOCOL 2011 TD/TDAP ADULTS 02/18/2023 02/18/2013, 05/0 01/2004, 12/03/1996, Additional history exists INFLUENZA VACCINE 06/12/2023 01/04/2007 HIB Completed 01/27/1994, 04/13, 02/17/1993, Additional history exists Hepatitis B Vaccines Completed 06/02/1997, 01/14/1997, 12/03/1996 HIV Screening Completed 05/06/2023 HPV Aged Out No longer eligi ble based on patient's age to complete this topic RSV Immunoglobulin Aged Out No longer eligible based on patient's age to complete this topic Procedures Procedure Name Priority Date/Time Associated Diagnosis Comments PC HIV-1 AG W/HIV-1 & HIV-2 AB Routine 05/06/2023 2:20 PM CDT from Last 3 Months or Most Recently Relevant to Health Maintenance Results * HIV COMBO (05/06/2023 2:20 PM CDT) HIV Antigen-Antibody Nonreactive Nonreactive [facility] Comment:Performance characte ristics have not been established with this test on patients less than 2 years of age. Blood 05/06/2023 2:20 PM CDT 05/06/2023 7:33 PM CDT Alberto Sepulveda MD LABORATORY [facility] [address] [address] from Last 3 Months or Most Recently Relevant to Health Maintenance Advance Directives For more information, please contact: [phone] * Full Code (Latest Code Status on File) Date Activated Date Inactivated Comments 05/08/2023 1:23 AM 05/09/2023 3:44 PM Question Answer Comments Does the Patient have prefer ences regarding life sustaining measures (these options only apply when the patient has a pulse): No Discussed Code Status With Whom? Not discussed
--- OUTSIDE RECORDS SUMMARY | 2024-03-02 09:06 | XMS_ITS | Clinical Summary ---
Author Name Unknown Organization [facility] Address [place], [place] [address] Care Team Providers Care Ppap Coordinator Name Role Phone Pcp, No Primary Care [...] Department Care Team Description 12/12/2023 10:15 AM COST COORDINATOR Ancillary Procedure [facility] [address] [place] [address] 12/12/2023 9:10 AM COST COORDINATOR Office Visit [facility] [address] [place] [address] Citlaly Garrett MD Leg Pain/problem (left leg); [...] Comments Blood Pressure 124/76 12/12/2023 9:22 AM COST COORDINATOR Pulse 55 12/12/2023 9:17 AM COST COORDINATOR Temperature 37.2 ??C (99 ??F) 11/13/2022 9:50 AM COST COORDINATOR Respiratory Rate 20 11/23/2017 3:57 PM COST COORDINATOR Oxygen Saturation 100% 12/12/2023 9:17 AM COST COORDINATOR Inhaled Oxygen Concentration - - Weight 119.2 kg (262 lb 12.8 oz) 12/12/2023 9:17 AM COST COORDINATOR Height 175.3 cm (5' 9.02) 12/26/2021 1 1:07 AM COST COORDINATOR Body Mass Index 38.79 12/26/2021 11:07 AM COST COORDINATOR Plan of Treatment Health Maintenance Due Date [...] 3 VIEWS LEFT Routine 12/12/2023 10:13 AM COST COORDINATOR Left ankle swelling ANTI HIV 1/2 Routine 09/17/2012 9:41 AM COST COORDINATOR Screen for STD (sexually transmitted disease) ANTI HCV Routine 09/17/2012 9:41 AM COST COORDINATOR Screen for STD (sexually transmitted disease) from Last 3 Months or Most Recently Relevant to Health Maintenance Results * XR ANKLE 3 VIEWS LEFT (12/12/2023 10:13 AM COST COORDINATOR) Anatomical Region Laterality Modality ANKLES, ANKLE L Computed Radiogr aphy 12/12/2023 12:0 1 PM COST COORDINATOR Narrative 12/12/2023 12:01 PM COST COORDINATOR For Patients: ??As a result of the [...] IMAGING * ANTI HCV (09/17/2012 9:41 AM COST COORDINATOR) ANTI HCV Non-reacti ve [facility] Blood specimen (specimen) BLOOD SPECIMEN / Unknown 09/17/2012 9:41 AM COST COORDINATOR 09/17/2012 9:36 AM COST COORDINATOR Lei Hill MD SEND OUTS [facility] INTERNAL ZIP [address] [place] [address] * ANTI HIV 1/2 (09/17/2012 9:41 AM COST COORDINATOR) ANTI HIV 1/2 Non-reacti ve [facility] Blood specimen (specimen) BLOOD SPECIMEN / Unknown 09/17/2012 9:41 AM COST COORDINATOR 09/17/2012 9:36 AM COST COORDINATOR Lei Hill MD SEND OUTS [facility] INTERNAL ZIP [address] [place] [address] from Last 3 Months or Most Recently Relevant to Health Maintenance Care Teams Ppap Coordinator Relationship Specialty Start Date End Date Pcp, No . PCP - General 01/22/12
--- OUTSIDE RECORDS SUMMARY | 2024-03-02 09:06 | XMS_ITS | Referral Summary ---
Author Name Unknown Organization [facility] [employer] Address [address] [place] [address] Phone Care Team Providers Care Linderman Operator Name Role Phone Unavailable Primary Care Provider Unavailabl e Source Comments [email or web address] is fully rolled out on [employer]. Last update 04/16/09.[employer] Allergies No known active allergies Medications * [...] organ d ysfunction, due to unspecified organism ([facility]) 05/06/2023 Social History Tobacco Use Types Packs/Day [...] Comments Blood Pressure 132/67 11/08/2023 8:07 AM SECURITY DISPATCHER Pulse 61 11/08/2023 8:07 AM SECURITY DISPATCHER Temperature 37.1 ??C (98.7 ??F) 05/23/2023 8:07 AM CD T Respiratory Rate 20 05/09/2023 8:00 AM CDT Oxygen Saturation 99% 05/23/2023 8:07 AM CDT Inhaled Oxygen Concentration - - Weight 120.2 kg (265 lb) 11/08/2023 8:07 AM SECURITY DISPATCHER Height 177.8 cm (5' 10) 11/08/2023 8:07 AM SECURITY DISPATCHER Body Mass Index 38.02 11/08/2023 8:07 AM SECURITY DISPATCHER Plan of Treatment Not on file Procedures Procedure Name Priority Date/Time Associated Diagnosis Comments PC HIV-1 AG W/HIV-1 & HIV-2 AB Routine 05/06/2023 2:20 PM CDT from Last 3 Months or Most Recently Relevant to Health Maintenance Results * HIV COMBO (05/06/2023 2:20 PM CDT) HIV Antigen-Antibody Nonreactive Nonreactive [facility] Comment:Performance characte ristics have not been established with this test on patients less than 2 years of age. Blood 05/06/2023 2:20 PM CDT 05/06/2023 7:33 PM CDT Alberto Sepulveda MD LABORATORY [facility] [address] [place] [phone] from Last 3 Months or Most Recently Relevant to Health Maintenance Advance Directives For more information, please contact: [phone] * Full Code (Latest Code Status on File) Date Activated Date Inactivated Comments 05/08/2023 1:23 AM 05/09/2023 3:44 PM Question Answer Comments Does the Patient have prefer ences regarding life sustaining measures (these options only apply when the patient has a pulse): No Discussed Code Status With Whom? Not discussed
--- OUTSIDE RECORDS SUMMARY | 2024-03-02 09:06 | XMS_ITS | Clinical Summary ---
Author Name Unknown Organization [facility] Address [address] [place] [address] Phone Care Team Providers Care Shot Dropper Name Role Phone Unavailable Primary Care Provider Unavailabl e Source Comments BBE is fully rolled out on [employer]. Last update 04/16/09[employer] Allergies No known active allergies Medications * [...] organ d ysfunction, due to unspecified organism ([facility]) 05/06/2023 Family History Medical History Relation Name [...] Comments Blood Pressure 132/67 11/08/2023 8:07 AM CUTTER BRAKE LINING Pulse 61 11/08/2023 8:07 AM CUTTER BRAKE LINING Temperature 37.1 ??C (98.7 ??F) 05/23/2023 8:07 AM CD T Respiratory Rate 20 05/09/2023 8:00 AM CDT Oxygen Saturation 99% 05/23/2023 8:07 AM CDT Inhaled Oxygen Concentration - - Weight 120.2 kg (265 lb) 11/08/2023 8:07 AM CUTTER BRAKE LINING Height 177.8 cm (5' 10) 11/08/2023 8:07 AM CUTTER BRAKE LINING Body Mass Index 38.02 11/08/2023 8:07 AM CUTTER BRAKE LINING Plan of Treatment Health Maintenance Due Date [...] 2:20 PM CDT) HIV Antigen-Antibody Nonreactive Nonreactive [facility] Comment:Performance characte ristics have not been established with this test on patients less than 2 years of age. Blood 05/06/2023 2:20 PM CDT 05/06/2023 7:33 PM CDT Alberto Sepulveda MD LABORATORY [facility] [address] [address] from Last 3 Months or Most Recently Relevant to Health Maintenance Advance Directives For more information, please contact: [phone] * Full Code (Latest Code Status on File) Date Activated Date Inactivated Comments 05/08/2023 1:23 AM 05/09/2023 3:44 PM Question Answer Comments Does the Patient have prefer ences regarding life sustaining measures (these options only apply when the patient has a pulse): No Discussed Code Status With Whom? Not discussed
[2024-03-02] MEDS: 0.9 % SODIUM CHLORIDE 1000 ml 1,000 ML IV ×2 (09:20→10:07)
[2024-03-02] MEDS: ONDANSETRON 2 MG/ML inj 4 MG IVP (09:22)
--- NOTE | 2024-03-02 09:40 | ED_ITS ---
HPI - Abdominal Pain General Date Seen: 03/02/24 Chief Complaint: Abdominal Pain Stated Complaint: abdominal pain Time Seen by Provider: 03/02/24 08:39 Source: patient and family Mode of arrival: ambulatory Limitations: no limitations History of Present Illness HPI narrative: c/o diarrhea, on toilet for 3 days straight. low grade fever, abd pain radiating to low back. denies sick contacts. also c/o pain with urination. Patient is seen in room 3, he has been sick for the last 3 days with mostly diarrhea, anywhere from 10-20 times a day, clear at this point, no blood or darkening stools attempting to use both Pepto-Bismol, and Imodium. Denies a history of any contacts being sick, no history of previous severe diarrhea, has not been on antibiotics in the last 2-3 months, no recent travel history, denies a fever, chills, no nausea or vomiting, trying to drink fluids but is feeling that he might be dehydrated. As is not urinated in the last 24 hours. Uses alcohol on the weekends, probably more than he should he tells me. No history of any abdominal operations, denies any significant drug use. Localizes pain more in the epigastric region. No radiation, but he is somewhat sore throat his whole abdomen. He does feel better after he has a bowel movement for short period of time. No relief from either the Pepto-Bismol or the Imodium. Immunization history full with the exception of COVID. [place] [facility] [place] in the past. MD elicited complaint: abdominal pain and other Pertinent past history: none Onset (ago): day(s) Pain Consistency: constant Location: epigastric Severity: moderate Quality: cramping, aching and fullness Migration to: no migration Exacerbating factors: nothing Relieving factors: nothing Associated symptoms: diarrhea Treatments prior to arrival: other Related Data Home Medications Medication Instructions Recorded Confirmed No Known Home Medications 03/02/24 03/02/24 Allergies Allergy/AdvReac Type Severity Reaction Status Date / Time No Known Drug Allergies Allergy Verified 03/02/24 12:29 Review of Systems Status of ROS Reports: 10 or more systems reviewed and unremarkable except as noted in History and below PFSH PFS Social History Smoking Status: Never smoker Do you use any of these nicotine containing products: None How often do you have a drink containing alcohol: never How often do you have six or more drinks on one occasion: Never AUDIT-C Alcohol total score: 0 Non-prescribed substance use: denies use Exam Narrative: Exam Narrative: On examination in room 3 he appears to be in no apparent distress he is pleasant and alert, excellent arreguin. Pupils equal round reactive, there is no scleral icterus redness TMs and oropharynx is normal with the hydration status appear to be normal. There is no meningismus. Cranial nerves 3-12 are normal, alert oriented x3. Chest is good air entry bilaterally with no wheezing crackles noted his heart sounds no clicks murmurs or gallops, his abdomen shows some tenderness in the epigastrium, mild, there is no peritoneal signs, he has tenderness throughout his abdomen, also a little bit less. No organomegaly bowel sounds are quiet, no CVA tenderness, groins are normal normal male genitalia, moves all extremities independently well, skin turgor is normal, magdaleno rologically normal his upper lower extremities with good power no evidence of rashes. Const: Vital Signs, click to edit/add: Vital Signs - 24 hr 03/02/24 08:39 03/02/24 09:37 03/02/24 09:54 Temperature 96.9 F L Pulse Rate 52 L Pulse Rate [Pulse Oximeter] 65 57 L Respiratory Rate 16 20 Blood Pressure Blood Pressure [Ri ght Upper Arm] 115/72 114/72 Pulse Oximetry 97 92 92 [facility] Room Air 03/02/24 10:00 03/02/24 10:15 03/02/24 10:30 Temperature Pulse Rate 52 L 72 62 Pulse Rate [Pulse Oximeter] Respiratory Rate Blood Pressure Blood Pressure [Ri ght Upper Arm] Pulse Oximetry 95 97 95 Oxygen Delivery Oh thod 03/02/24 10:38 03/02/24 10:45 03/02/24 12:04 Temperature Pulse Rate 54 L 52 L 67 Pulse Rate [Pulse Oximeter] Respiratory Rate Blood Pressure 129/69 Blood Pressure [Ri ght Upper Arm] Pulse Oximetry 97 94 98 Oxygen Delivery Oh thod 03/02/24 12:15 03/02/24 12:30 03/02/24 12:45 Temperature Pulse Rate 54 L 56 L 57 L Pulse Rate [Pulse Oximeter] Respiratory Rate Blood Pressure Blood Pressure [Ri ght Upper Arm] Pulse Oximetry 94 97 95 Oxygen Delivery Me thod Documenting provider has reviewed patient's vital signs: yes Course Reevaluation(s) Time of Reevaluation #1: 10:54 Reevaluation #1: Went back in and discussed with the patient his laboratory work all looks reasonable. I examined him, his abdomen is soft, there is no evidence of any significant tenderness, or peritoneal signs. He did say that he felt better. I offered him a CT scan, his abdomen based on his complaint of abdominal pain him and his both consider this. Let me know, he has not had a bowel movement since he has been here, if he does then we can get a sample, and sent off for both C diff culture and sensitivity. Otherwise I would recommend maybe with a little Zofran going home and seeing how it goes, with the warning signs given to the patient. Time of Reevaluation #2: 12:49 Reevaluation #2: I discussed with them that the CT scan did not show any acute abnormalities coupled with the blood test, we will let him go home. At this point I will give her prescription for Zofran. Vital Signs Vital signs: Initial Vital Signs Temperature 96.9 F L 03/02/24 08:39 Temperature Source Temporal Artery Scan 03/02/24 08:39 Pulse Rate 65 03/02/24 08:39 Respiratory Rate 16 03/02/24 08:39 Blood Pressure 115/72 03/02/24 08:39 Blood Pressure Mean 86 03/02/24 08:39 Blood Pressure Position Sitting 03/02/24 08:39 Pulse Oximetry 97 03/02/24 08:39 Oxygen Delivery Method Room Air 03/02/24 08:39 Vital Signs Temperature 96.9 F L 03/02/24 08:39 Pulse Rate 65 03/02/24 08:39 Respiratory Rate 16 03/02/24 08:39 Blood Pressure 115/72 03/02/24 08:39 Pulse Oximetry 97 03/02/24 08:39 Oxygen Delivery Method Room Air 03/02/24 08:39 Temperature 96.9 F L 03/02/24 08:39 Pulse Rate 57 L 03/02/24 12:45 Respiratory Rate 20 03/02/24 09:37 Blood Pressure 129/69 03/02/24 10:38 Pulse Oximetry 95 03/02/24 12:45 Oxygen Delivery Method Room Air 03/02/24 09:37 Medications Administered Medications: Discontinued Medications Generic Name Dose Route Start Last Admin Trade Name Kelvin PRN Reason Stop Dose Admin Sodium Chloride 1,000 mls @ 1,000 mls/hr 03/02/24 09:00 03/02/24 10:07 0.9 % Sodium Chloride 1000 Ml IV 03/02/24 09:59 Infused .Q1H CHRIS Infusion Sodium Chloride 1,000 mls @ 1,000 mls/hr 03/02/24 09:01 03/02/24 11:50 0.9 % Sodium Chloride 1000 Ml IV 03/02/24 10:00 Infused .Q1H CHRIS Infusion Ondansetron HCl 4 mg 03/02/24 08:59 03/02/24 09:22 Ondansetron 2 Mg/Ml Inj IVP 03/02/24 09:00 4 mg ONCE ONE Administration MDM - Abdominal Pain MDM Narrative Medical decision making narrative: Differential diagnosis considered include but not limited to viral gastroenteri tis, food poisoning, bowel obstruction, Clostridium difficile, Campylobacter, Shigella, rotavirus, medication side effects, dysentery, diverticulitis, Crohn's disease and colitis Differential Diagnosis Differential diagnosis: Likely abdominal pain Medical Records Attestation: I reviewed the patient's medical records. Lab Data Attestation: I reviewed the patient's lab results. Labs: Lab Results 03/02/24 03/02/24 Range/Units 09:30 10:35 WBC 5.77 (4.50-11.00) K/uL RBC 4.75 (4.30-5.90) m/uL Hgb 14.4 (13.5-17.5) gm/dL Hct 43.1 (37.0-53.0) % MCV 91 (80-100) fL MCH 30 (26-34) pg MCHC 33 (32-36) gm/dL RDW Coeff of Kasandra 12.3 (11.5-15.5) % Plt Count 191 (140-440) K/uL Neut % (Auto) 63.3 (42.0-72.0) % Lymph % (Auto) 22.9 (20-44) % Glascock % (Auto) 12.5 H (0.0-11.0) % Eos % (Auto) 0.5 (0.0-7.0) % Baso % (Auto) 0.3 (0.0-3.0) % Neut # (Auto) 3.65 (1.7-7.0) K/uL Lymph # (Auto) 1.32 (0.90-2.90) K/uL Glascock # (Auto) 0.70 (0.00-0.90) K/UL Eos # (Auto) 0.03 (0.00-0.50) K/uL Baso # (Auto) 0.02 (0.00-0.30) K/uL Abs Immat Gran (auto) 0.03 (0.00-0.30) K/uL Imm/Tot Granulo (auto) 0.5 % Sodium 140 (135-149) mmol/L Potassium 4.1 (3.6-5.1) mmol/L Chloride 112 (96-114) mmol/L Carbon Dioxide 24 (20-32) mmol/L Anion Gap 4 L (7-15) mEq/L BUN 18 (5-24) mg/dL Creatinine 0.9 (0.5-1.5) mg/dL Estimated Creat Clear 118.92 Estimated GFR 117 ml/min Glucose 89 (60-115) mg/dL Lactate 1.0 (0.5-1.9) mmol/L Calcium 9.5 (8.4-10.6) mg/dL Total Bilirubin 0.8 (0.1-1.5) mg/dL Direct Bilirubin 0.2 (0.0-0.5) mg/dL AST 38 H (12-35) U/L ALT 35 (4-50) U/L Alkaline Phosphatase 52 (40-150) U/L C-Reactive Protein 2.0 H (0.5-1.0) mg/dL Total Protein 8.0 (6.0-8.3) g/dL Albumin 4.6 (3.3-5.0) g/dL Amylase 68 (18-89) U/L Lipase 54 (23-300) U/L Procalcitonin 0.08 (<0.50) ng/mL Urine Color Dark yellow (Yellow) Urine Appearance Clear (Clear) Urine pH 5.5 (5.0-8.5) Ur Specific [place] 1.025 (1.000-1.030) Urine Protein Negative (Negative) Urine Glucose (UA) Negative (Negative) Urine Ketones Negative (Negative) Urine Blood Negative (Negative) Urine Nitrite Negative (Negative) Urine Bilirubin Negative (Negative) Urine Urobilinogen 0.2 (0.2-1.0) Ur Leukocyte Esterase Negative (Negative) Urine RBC 0-2 (0-2) Urine WBC 0-2 (0-5) Ur Squamous Epith Cells None (None-Few) Urine Bacteria None (None) SARS-CoV-2 (PCR) Negative SARS-CoV-2 (Negative) Influenza Type A (PCR) Negative PCR FLU A (Negative) Influenza Type B (PCR) Negative PCR FLU B (Negative) RSV (PCR) Negative PCR RSV (Negative) Imaging Data CT scan - abdomen: Attestation: I have reviewed the pertinent imaging results. My impression: No acute finding seen by myself on the CT scan. Radiologist's impression: Patient: DOMINIC DEL ROSARIO Facility:?[facility] Patient ID:?[id number] Site Patient ID:?[id number] Site :?1990 Study:?CT-Abdomen/Pelvis W/ 122CC ISOVUE 370-03/02/2024 12:09:02 PM Ordering Physician:GERALDINE Final Report: INDICATION: Lower abdominal pain. Diarrhea. TECHNIQUE: Multiple axial images were obtained from the diaphragm to symphysis pubis after administration of 122 mL of Isovue-370 intravenously. Sagittal and coronal re- formatted images were obtained. COMPARISON: None. FINDINGS: There is atelectasis in the dependent portion of the lungs. There is no focal liver lesion. The spleen, pancreas, gallbladder and adrenal glands are unremarkable. There is no mass or hydronephrosis in the kidneys. There is no evidence of a bowel obstruction. The appendix is unremarkable. The abdominal aorta is normal in caliber. There is no adenopathy. There is no free fluid in the abdomen or pelvis. There is a limbus vertebra in the superior endplate of L3. There is mild end disease. IMPRESSION: No acute abnormality. Please note that all CT scans at this facility use dose modulation, iterative reconstruction, and/or weight-based dosing when appropriate to reduce radiation dose to as low as reasonably achievable. Dictated by Sherman Mendez MD @ Discharge Plan Discharge Clinical Impression: Diarrhea, Abdominal pain Patient Disposition: Home w/ Parent or Adult Condition: Stable Instructions: Acute Diarrhea (ED), Abdominal Pain (ED) Additional Instructions: Home,rest and use of the zofran and the pepto bismol. Stool studies if ongoing signs and symptoms and follow up with primary care. Return if worsening, fever, chills and abd pain, but labs and CT are very reasurring this is just a passing bug. Prescriptions: No Action No Known Home Medications Follow Up/Referrals: Provider,Not a Local [Primary Care Provider] - Stand Alone Forms: [facility] Info Instructions
[2024-03-02 09:43] LABS: Basophils Absolute Auto 0.02 K/uL (0.00-0.30); Basophils Percent Auto 0.3 % (0.0-3.0); Eosinophils Absolute Auto 0.03 K/uL (0.00-0.50); Eosinophils Percent Auto 0.5 % (0.0-7.0); Hematocrit 43.1 % (37.0-53.0); Hemoglobin* 14.4 gm/dL (13.5-17.5); Immature Granulocytes Abs Auto 0.03 K/uL (0.00-0.30); Immature Granulocytes Pct Auto 0.5 %; Lymphocytes Absolute Auto 1.32 K/uL (0.90-2.90); Lymphocytes Percent Auto 22.9 % (20-44); Mean Corpuscular HGB Conc 33 gm/dL (32-36); Mean Corpuscular Hemoglobin 30 pg (26-34); Mean Corpuscular Volume 91 fL (80-100); Monocytes Percent Auto 12.5 % (0.0-11.0); Neutrophils Absolute Auto 3.65 K/uL (1.7-7.0); Neutrophils Percent Auto 63.3 % (42.0-72.0); Platelet Count* 191 K/uL (140-440); RDW Coefficient of Variation % 12.3 % (11.5-15.5); Red Blood Count 4.75 m/uL (4.30-5.90); White Blood Count* 5.77 K/uL (4.50-11.00)
[2024-03-02 09:58] LABS: Slide Review Reflex No
[2024-03-02 10:01] LABS: Chloride* 112 mmol/L (96-114); Potassium* 4.1 mmol/L (3.6-5.1); Sodium* 140 mmol/L (135-149)
[2024-03-02 10:02] LABS: Albumin* 4.6 g/dL (3.3-5.0)
[2024-03-02 10:03] LABS: Amylase* 68 U/L (18-89)
[2024-03-02 10:04] LABS: Anion Gap 4 mEq/L (7-15); Blood Urea Nitrogen* 18 mg/dL (5-24); Calcium* 9.5 mg/dL (8.4-10.6); Carbon Dioxide* 24 mmol/L (20-32); Creatinine* 0.9 mg/dL (0.5-1.5); Est. Creatinine Clearance* 118.92; Estimated Glomerular Filt Rate 117 ml/min; Glucose* 89 mg/dL (60-115); Lipase* 54 U/L (23-300)
[2024-03-02 10:05] LABS: Alanine Aminotransferase* 35 U/L (4-50); Alkaline Phosphatase* 52 U/L (40-150); Aspartate Amino Transferase* 38 U/L (12-35); Bilirubin Direct* 0.2 mg/dL (0.0-0.5); Bilirubin Total* 0.8 mg/dL (0.1-1.5)
[2024-03-02 10:21] LABS: Procalcitonin* 0.08 ng/mL (<0.50)
[2024-03-02 10:26] LABS: PCR FLU A Negative PCR FLU A (Negative); PCR FLU B Negative PCR FLU B (Negative); PCR RSV Negative PCR RSV (Negative); SARS PCR* Negative SARS-CoV-2 (Negative)
[2024-03-02 10:43] LABS: Appearance Urine Clear (Clear); Bilirubin Urine Negative (Negative); Blood Urine Negative (Negative); Color Urine Dark yellow (Yellow); Glucose Urine Negative (Negative); Ketones Urine Negative (Negative); Leukocyte Esterase Urine Negative (Negative); Nitrite Urine Negative (Negative); Protein Urine Negative (Negative); Specific Gravity Urine 1.025 (1.000-1.030); Urobilinogen Urine 0.2 (0.2-1.0); pH Urine 5.5 (5.0-8.5)
[2024-03-02 10:49] LABS: RBC Urine 0-2 (0-2); WBC Urine 0-2 (0-5)
--- NOTE | 2024-03-02 11:09 | CT_ITS ---
Patient: DOMINIC DEL ROSARIO Facility:?[facility] Patient ID:?[id number] Site Patient ID:?[id number] Site :?1990 Study:?CT-Abdomen/Pelvis W/ 122CC ISOVUE 370-03/02/2024 12:09:02 PM Ordering Physician:GERALDINE Final Report: INDICATION: Lower abdominal pain. Diarrhea. TECHNIQUE: Multiple axial images were obtained from the diaphragm to symphysis pubis after administration of 122 mL of Isovue-370 intravenously. Sagittal and coronal re- formatted images were obtained. COMPARISON: None. FINDINGS: There is atelectasis in the dependent portion of the lungs. There is no focal liver lesion. The spleen, pancreas, gallbladder and adrenal glands are unremarkable. There is no mass or hydronephrosis in the kidneys. There is no evidence of a bowel obstruction. The appendix is unremarkable. The abdominal aorta is normal in caliber. There is no adenopathy. There is no free fluid in the abdomen or pelvis. There is a limbus vertebra in the superior endplate of L3. There is mild end disease. IMPRESSION: No acute abnormality. Please note that all CT scans at this facility use dose modulation, iterative reconstruction, and/or weight-based dosing when appropriate to reduce radiation dose to as low as reasonably achievable. Dictated by Sherman Mendez MD @ 03/02/2024 12:18:06 PM Signed by:?Sherman Mendez MD @03/02/2024 12:18:06 PM (Electronic Signature
== END 2024-03-02 12:55 | disposition home or self-care (01) ==
PROVIDERS: Emergency Provider Family Medicine
DX: R10.9 Unspecified abdominal pain (principal); R19.7 Diarrhea, unspecified
CPT/HCPCS: 36415; 74177; 80048; 80076; 81001; 82150; 83605; 83690; 84145; 85025; 86140; 87631; 96374; 99284; J2405; J7030; Q9967